=== PATIENT | female | born 1970 | race Caucasian/White ===

== ENCOUNTER 2019-07-25 16:38 | Emergency (ER) | payer BC, MEDICAID ==
[2019-07-25 17:33] LABS: ABSOLUTE NEUTROPHIL COUNT 3.39; BASO % 0.4 % (0-6); EOS % 0.8 % (0-6); HEMATOCRIT 46.2 % (35.0-47.0); HEMOGLOBIN 15.5 gm/dl (11.6-16.0); LYMPH % 43.9 % (16-45); MEAN CELL VOLUME 90.6 fl (81-97); MEAN CORPUSCULAR HEMOGLOBIN 30.4 pg (27-33); MEAN CORPUSCULAR HGB CONC 33.5 g/dl (32-36); MEAN PLATELET VOLUME 9.8 fl (7.4-10.4); MONO % 9.9 % (0-9); PLATELET COUNT 420 K/uL (130-400); WHITE BLOOD COUNT W/O DIFF 7.5 K/uL (4.2-12.2)
[2019-07-25] MEDS ORDERED: LORAZEPAM 2 MG/ML VIAL IV ONE (17:33)
[2019-07-25] MEDS ORDERED: ASPIRIN 81 MG CHEWABLE TABLET PO ONE (17:33)
--- NOTE | 2019-07-25 17:35 | Emergency Department Record ---
History of Present Illness - General Chief Complaint: Chest Pain Stated Complaint: CHEST PAIN Time Seen by Provider: 07/25/19 17:27 Source: Patient Mode of Arrival: Wheelchair Limitations: No limitations - History of Present Illness Initial Comments: 48 yo female presents to ED for evaluation of chest discomfort symptoms and feeling "anxious", reports a history of anxiety as well. Patient denies any factors that improve or worsen her symptoms, patient denies previous heart, lung, or smoking history. Patient denies history of CAD, DVT, PE, calf katerine n/swelling, or immobilization. Patient denies health problems other than anxiety at her baseline. Onset/Timin -: Week(s) Onset: Other Pain Location: Other Pain Radiation: None Quality: Other Consistency: Intermittent Improves With: Nothing Worsens With: Nothing Treatments Prior to Arrival: None - Related Data On Oral Contraceptives: No Home Medications Medication Instructions Recorded Confirmed Last Taken No Home Med [NO HOME MEDS] 07/25/19 07/25/19 Unknown Allergies Allergy/AdvReac Type Severity Reaction Status Date / Time No Known Drug Allergies Allergy Unverified 07/20/18 14:07 Travel Screening - Travel/Exposure Within Last 30 Days Have you traveled within the last 30 days?: No Review of Systems Constitutional: Denies: Chills, Fever, Malaise, Night sweats Eyes: Denies: Eye discharge, Eye pain ENT: Denies: Congestion, Ear pain, Epistaxis Respiratory: Denies: Cough, Dyspnea Cardiovascular: Reports: Chest pain. Denies: Dyspnea on exertion, Palpitations, Paroxysmal nocturnal dyspnea Endocrine: Denies: Fatigue, Heat or cold intolerance Gastrointestinal: Denies: Abdominal pain, Nausea, Vomiting Genitourinary: Denies: Incontinence, Retention Musculoskeletal: Denies: Arthralgia, Back pain Skin: Denies: Bruising, Change in color Neurological: Denies: Abnormal gait, Confusion, Headache, Tingling, Tremors Psychiatric: Denies: Anxiety Hematological/Lymphatic: Denies: Anemia, Blood Clots Past Medical History - SOCIAL HISTORY Smoking Status: Former smoker - RESPIRATORY Hx Respiratory Disorders: No - CARDIOVASCULAR Hx Cardio Disorders: No - NEURO Hx Neuro Disorders: Yes Hx Headaches: Yes Comment:: occasional migraine - GI Hx GI Disorders: No - Hx Genitourinary Disorders: Yes Hx Bladder Problem: Yes Hx Kidney Stones: Yes - ENDOCRINE Hx Endocrine Disorders: No - MUSCULOSKELETAL Hx Musculoskeletal Disorders: Yes Hx Fibromyalgia: Yes - PSYCH Hx Psych Problems: Yes Hx Anxiety: Yes Hx Depression: Yes - HEMATOLOGY/ONCOLOGY Hx Hematology/Oncology Disorders: No Family Medical History Any Significant Family History?: Yes Family Hx Comment (NOT TO BE USED IN PLACE OF ITEMS BELOW): HTN diabetes Hx Alcohol Use: Brother/Sister Hx Anxiety: Brother/Sister Hx Cancer: Father Hx Depression: Brother/Sister Hx Diabetes: Father, Mother, Brother/Sister Hx HTN: Brother/Sister, Grandparents Hx Kidney Disease: Grandparents Physical Exam - General General Appearance: Alert, Oriented x3, Cooperative, Mild distress, Anxious Limitations: No limitations - Head Head exam: Atraumatic, Normocephalic, Normal inspection Head exam detail: negative: Abrasion, Contusion, Etienne's sign, General tenderness, Hematoma, Laceration - Eye Eye exam: Normal appearance. negative: Conjunctival injection, Periorbital swelling, Periorbital tenderness, Scleral icterus - ENT Ear exam: negative: Auricular hematoma, Auricular trauma Nasal Exam: negative: Active bleeding, Discharge, Dried blood, Foreign body Mouth exam: negative: Drooling, Laceration, Muffled voice, Tongue elevation - Neck Neck exam: Normal inspection. negative: Meningismus, Tenderness - Respiratory Respiratory exam: Normal lung sounds bilaterally. negative: Respiratory distress, Rhonchi, Stridor, Wheezes - Cardiovascular Cardiovascular Exam: Regular rate, Normal rhythm, Normal heart sounds - GI/Abdominal GI/Abdominal exam: Soft. negative: Distended, Rebound, Rigid, Tenderness - Rectal Rectal exam: Deferred - exam: Deferred - Extremities Extremities exam: Normal inspection. negative: Pedal edema, Tenderness - Back Back exam: Denies: CVA tenderness (R), CVA tenderness (L) - Neurological Neurological exam: Alert, Normal gait, Oriented X3 - Psychiatric Psychiatric exam: Normal affect, Normal mood - Skin Skin exam: Normal color. 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 Patient was updated on results thus far. Reevaluation #3: 07/25/19 19:23 CXR: No acute process Old granulomatous disease Medical Decision Making - Lab Data Result diagrams: 07/25/19 16:50 07/25/19 16:50 Disposition Disposition: Discharge Clinical Impression: Chest pain, atypical Disposition: Home, Self-Care Condition: (2) Stable Instructions: Chest Pain (ED) Additional Instructions: Return to ED if your symptoms worsen or if you have any concerns. Follow-up with your family doctor in 3-5 days as directed. Follow-up with Dr. Robles in 13 days as directed. Referrals: TABATHA ROBLES M.D. [MEDICAL DOCTOR] - [facility] [Provider Group] Forms: Patient Portal Access Time of Disposition: 20:37 Quality - Quality Measures Quality Measures: N/A - Blood Pressure Screening Does Patient Have Any of the Following: No Blood Pressure Classification: Hypertensive Reading Systolic Measurement: 136 Diastolic Measurement: 96 Screening for High Blood Pressure: < First Hypertensive BP, F/U Documented > [G8950] First Hypertensive Follow-up Interventions: Referral to alternative/primary care provider.
[2019-07-25 17:41] LABS: BLOOD UREA NITROGEN 9 mg/dL (6-20); CREATININE 0.8 mg/dL (0.5-0.9); EST GLOMERULAR FILTRATION RATE > 60 mL/min
[2019-07-25 17:44] LABS: GLUCOSE,RANDOM 99 mg/dL (74-109)
[2019-07-25 17:46] LABS: ALB/GLOB RATIO 1.6 (1.1-1.8); ALBUMIN 4.9 g/dL (4.0-5.0); ALKALINE PHOSPHATASE 66 U/L (35-104); ALT/SGPT 9 U/L (<33); AST/SGOT 14 U/L (10.0-35.0); CREATINE PHOSPHOKINASE 41 U/L (26-192)
[2019-07-25 17:49] LABS: CKMB < 1.0 ng/mL (<3.77)
--- NOTE | 2019-07-25 18:08 | RADIOLOGY REPORT ---
EXAMINATION: Two View Chest Radiographs EXAM DATE: 07/25/2019 6:03 PM TECHNIQUE: Frontal and lateral views INDICATION: chest discomfort COMPARISON: None ENCOUNTER: Not applicable FINDINGS: The heart, mediastinum, and pulmonary vasculature are normal. Ossified AP window lymph node. No lung consolidation or pleural effusions are present. IMPRESSION: No acute intrathoracic process. Old granulomatous disease. Dictated by: Paco Camacho MD on 07/25/2019 6:04 PM. .
== END 2019-07-25 20:59 | disposition home or self-care (01) ==
LOC: ER 16:38
DX: R07.89 Other chest pain (principal); R51 Headache; Z87.891 Personal history of nicotine dependence
CPT/HCPCS: 71046; 80048; 80053; 82550; 82553; 84484; 85025; 93005; 93010; 96374; 99284